=== PATIENT | male | born 1990 | race Caucasian/White ===

== ENCOUNTER 2016-06-07 23:25 | Emergency (ER) | payer SELFPAY ==
[~2016-06-07] VITALS: Ht 172.7 cm; Wt 80.6 kg
[2016-06-07 23:37] VITALS: BP 146/64
[2016-06-08 00:16] LABS: ADD MIUA? YES; BILIRUBIN NEGATIVE; BLOOD NEGATIVE; COLOR YELLOW ((YELLOW)); GLUCOSE (STRIP) NEGATIVE; KETONES NEGATIVE; LEUKOCYTES NEGATIVE; NITRITE NEGATIVE; PROTEIN (STRIP) NEGATIVE; SPECIFIC GRAVITY 1.017 (1.000-1.030); UROBILINOGEN 0.2 MG/DL (0.2-1.0)
[2016-06-08 00:21] LABS: HEMATOCRIT 39.5 % (38.0-50.0); MCH 29.5 PG (29.0-34.0); MCHC 32.9 G/DL (30.0-36.0); MCV 89.8 FL (86-99); MEAN PLAT.VOLUME 9.6 uM^3 (9.0-12.4); PLATELET COUNT 301 K/uL (156-360); RBC DIS.WIDTH-CV 13.2 % (11.8-14.6); RBC DIS.WIDTH-SD 43.5 % (39-53)
[2016-06-08 00:25] LABS: CHLORIDE 107 mEq/L (99-109); POTASSIUM 3.6 mEq/L (3.7-5.4); SODIUM 143 mEq/L (136-147)
[2016-06-08 00:27] LABS: GLUCOSE 107 mg/dL (70-99)
[2016-06-08 00:28] LABS: ANION GAP 10 MEQ/L (2-14)
[2016-06-08 00:31] LABS: GFR ESTIMATE (CALCULATED) > 59 mL/min/
[2016-06-08 00:32] LABS: UREA NITROGEN (BUN) 17 mg/dL (9-23)
[2016-06-08 01:14] LABS: BACTERIA NONE SEEN /HPF; EPITHELIAL CELLS RARE /HPF; HYALINE CASTS 0-5 /LPF; MUCUS 2+ /LPF; RED BLOOD CELLS 0-5 /HPF (0-5); UCUL ADDED? NO; WHITE BLOOD CELLS 0-5 /HPF (0-5)
== END 2016-06-08 01:30 | disposition left against medical advice (07) ==
LOC: EME 23:25
DX: M54.5 Low back pain (principal); Z53.21 Procedure and treatment not carried out due to patient leaving prior to being seen by health care provider
CPT/HCPCS: 80048; 81003; 85027